=== PATIENT | female | born 1985 | race African-American/Black ===

== ENCOUNTER 2016-07-01 10:09 | Emergency (ER) | payer MEDICAID ==
[~2016-07-01] VITALS: Ht 170.2 cm; Wt 79.8 kg
[~2016-07-01 10:09] MED LIST: AMOXICILLIN500 MG PO; BENADRYL 50MG C50 MG OR; MEDDOSEPAK OR
[2016-07-01] MEDS ORDERED: AMOXICILLIN500 MG PO (11:05)
[2016-07-01 11:10] VITALS: BP 119/74
== END 2016-07-01 11:10 | disposition home or self-care (01) | DRG 153 ==
LOC: ED 10:09
DX: J02.0 Streptococcal pharyngitis (principal); R50.9 Fever, unspecified; R51 Headache

== ENCOUNTER 2016-08-02 17:03 | Emergency (ER) | payer MEDICAID ==
[~2016-08-02] VITALS: Ht 170.2 cm; Wt 79.0 kg
[2016-08-02] MEDS ORDERED: MOTRIN800 MG PO (18:00)
[2016-08-02] MEDS ORDERED: FLEXERIL PO (18:00)
[2016-08-02] MEDS ORDERED: TRAMADOL HYDROC50 MG PO (18:00)
[2016-08-02 18:15] VITALS: BP 115/68
== END 2016-08-02 18:15 | disposition home or self-care (01) | DRG 552 ==
LOC: ED 17:03
DX: M62.830 Muscle spasm of back (principal); X50.0XXA Overexertion from strenuous movement or load, initial encounter; Y93.89 Activity, other specified; Y92.89 Other specified places as the place of occurrence of the external cause

== ENCOUNTER 2016-09-02 11:41 | Emergency (ER) | payer MEDICAID ==
[~2016-09-02] VITALS: Ht 170.2 cm; Wt 80.0 kg
[~2016-09-02 11:41] MED LIST changes: +FLEXERIL PO; +MOTRIN800 MG PO; +TRAMADOL HYDROC50 MG PO
[2016-09-02] MEDS ORDERED: KEFLEX500 MG PO (13:23)
[2016-09-02] MEDS ORDERED: MEDDOSEPAK PO (13:23)
[2016-09-02 13:25] VITALS: BP 100/64
== END 2016-09-02 13:25 | disposition home or self-care (01) | DRG 607 ==
LOC: ED 11:41
DX: S70.362A Insect bite (nonvenomous), left thigh, initial encounter (principal); L03.116 Cellulitis of left lower limb; F31.9 Bipolar disorder, unspecified; F17.210 Nicotine dependence, cigarettes, uncomplicated; W57.XXXA Bitten or stung by nonvenomous insect and other nonvenomous arthropods, initial encounter; B95.61 Methicillin susceptible Staphylococcus aureus infection as the cause of diseases classified elsewhere

== ENCOUNTER 2017-02-27 13:27 | Emergency (ER) | payer MEDICAID ==
[~2017-02-27] VITALS: Ht 170.2 cm; Wt 70.0 kg
[~2017-02-27 13:27] MED LIST changes: +KEFLEX500 MG PO; +MEDDOSEPAK PO
[2017-02-27 15:08] LABS: URINE BILIRUBIN - DIPSTICK NEGATIVE (NEGATIVE); URINE BLOOD DIPSTICK NEGATIVE (NEGATIVE); URINE COLOR YELLOW; URINE GLUCOSE - DIPSTICK NEGATIVE (NEGATIVE); URINE KETONE NEGATIVE (NEGATIVE); URINE LEUK ESTERASE NEGATIVE (NEGATIVE); URINE NITRITE - DIPSTICK NEGATIVE (Negative); URINE PH 5.5 (4.5-8.0); URINE PROTEIN - DIPSTICK NEGATIVE (NEG-TRACE); URINE SPECIFIC GRAVITY >=1.030; URINE UROBILINOGEN - DIPSTICK 0.2 E.U./dL (0.2)
[2017-02-27 15:16] LABS: URINE CLARITY CLEAR
[2017-02-27 16:20] LABS: HEMATOCRIT 38.7 % (37.0-47.0); HEMOGLOBIN 12.4 g/dl (12.0-16.0); IMMATURE GRANULOCYTES 0.3 % (0.0-1.0); MEAN CELL VOLUME 85.1 fL CALC (80.0-100.0); MEAN CORPUSCULAR HGB 27.3 pG CALC (26.0-32.0); NEUT# 6.41 thou/uL (2.00-7.15); RED BLOOD COUNT 4.55 mill/uL (4.20-5.60); RED CELL DISTRI WIDTH 12.9 % (11.5-15.5)
[2017-02-27 16:38] LABS: ALBUMIN 4.2 g/dL (3.2-5.0); ALKALINE PHOSPHATASE 56 u/l (38-126); ANION GAP 15 (6-22 (CALC)); BILIRUBIN, TOTAL 0.2 mg/dL (0.0-1.4); BUN 11 mg/dL (7-17); BUN/CREATININE RATIO 20 (12-20 (CALC)); CALCIUM 9.9 mg/dL (8.4-10.2); CARBON DIOXIDE 22 mmol/l (22-30); CHLORIDE 105 mmol/l (95-108); CREATININE 0.6 mg/dL (0.5-1.0); GFR > 60 ML/MIN (>=60 (CALC)); GFR FOR AFR.AMER. > 60 ML/MIN (>=60 (CALC)); GLUCOSE 92 mg/dL (65-105); POTASSIUM 3.7 mmol/l (3.5-5.1); SGOT/AST 16 u/l (14-36); SGPT/ALT 20 u/l (9-52); SODIUM 138 mmol/l (137-146); TOTAL PROTEIN 7.2 g/dL (6.3-8.2)
[2017-02-27] MEDS ORDERED: DIFLUCAN150 MG PO (16:59)
[2017-02-27 17:26] LABS: BETA-HCG, QUANT(RESULT NUMBER) 84084 mIU/mL
[2017-02-27 17:29] VITALS: BP 125/67
== END 2017-02-27 17:29 | disposition home or self-care (01) | DRG 781 ==
LOC: ED 13:27
PROVIDERS: Emergency Medicine
DX: O98.811 Other maternal infectious and parasitic diseases complicating pregnancy, first trimester (principal); Z3A.08 8 weeks gestation of pregnancy

== ENCOUNTER 2017-06-12 08:26 | Emergency (ER) | payer MEDICAID ==
[~2017-06-12] VITALS: Ht 170.2 cm; Wt 82.0 kg
[~2017-06-12 08:26] MED LIST changes: +DIFLUCAN150 MG PO
[2017-06-12] MEDS ORDERED: PRENATA4 PO (08:47)
[2017-06-12 10:01] LABS: URINE BILIRUBIN - DIPSTICK NEGATIVE (NEGATIVE); URINE BLOOD DIPSTICK NEGATIVE (NEGATIVE); URINE COLOR YELLOW; URINE GLUCOSE - DIPSTICK NEGATIVE (NEGATIVE); URINE KETONE NEGATIVE (NEGATIVE); URINE LEUK ESTERASE TRACE (NEGATIVE); URINE NITRITE - DIPSTICK NEGATIVE (Negative); URINE PROTEIN - DIPSTICK NEGATIVE (NEG-TRACE); URINE SPECIFIC GRAVITY 1.015; URINE UROBILINOGEN - DIPSTICK 0.2 E.U./dL (0.2)
[2017-06-12 10:08] LABS: URINE CLARITY CLEAR
[2017-06-12 10:23] VITALS: BP 122/81
== END 2017-06-12 10:24 | disposition home or self-care (01) | DRG 563 ==
LOC: ED 08:26
PROVIDERS: Family Medicine
DX: S39.012A Strain of muscle, fascia and tendon of lower back, initial encounter (principal); X58.XXXA Exposure to other specified factors, initial encounter; Z33.1 Pregnant state, incidental

== ENCOUNTER 2017-08-06 08:08 | Emergency (ER) | payer MEDICAID ==
[~2017-08-06] VITALS: Ht 170.2 cm; Wt 86.0 kg
[~2017-08-06 08:08] MED LIST changes: +PRENATA4 PO
[2017-08-06 08:11] VITALS: BP 116/49
== END 2017-08-06 09:20 | disposition left against medical advice (07) | DRG 778 ==
LOC: ED 08:08
DX: O60.03 Preterm labor without delivery, third trimester (principal); Z3A.34 34 weeks gestation of pregnancy; Z91.19 Patient's noncompliance with other medical treatment and regimen